=== PATIENT | male | born 1980 | race Caucasian/White ===

== ENCOUNTER 2017-03-20 23:26 | Emergency (ER) | payer MEDICAID, OTHER ==
[2017-03-20 23:53] VITALS: BP 127/80; PULSE 72; RESP 20; TEMP 98.1; O2SAT 98
--- NOTE | 2017-03-21 00:04 | C.PDOC ---
History Of Present Illness 37 year old male who presents to the ER with a complaint of diffuse dental pain. Patient is scheduled for a dental procedure tomorrow but is requesting strong narcotic medications for the pain; he reports he took tylenol with no relief. Denies fever, bleeding gums, or discharge. Time Seen by Provider: 03/21/17 00:01 Chief Complaint (Nursing): Dental Pain History Per: Patient History/Exam Limitations: no limitations Onset/Duration Of Symptoms: Days Current Symptoms Are (Timing): Still Present Quality: Positive for: Aching Recent travel outside of the [place]: No Past Medical History Reviewed: Historical Data, Nursing Documentation, Vital Signs Vital Signs: Last Vital Signs Temp 98.1 F 03/20/17 23:44 Pulse 72 03/20/17 23:44 Resp 20 03/20/17 23:44 BP 127/80 03/20/17 23:44 Pulse Ox 98 03/21/17 00:04 - Medical History PMH: Anemia, Anxiety, Asthma, Depression, Fractures, Obstructive Bowel, Post Traumatic Stress Disorder, Seizures, Chronic Pain Surgical History: No Surg Hx - [facility] Procedures INDIVID PSYCHOTHERAP NEC (01/03/14) INJECT/INFUSE ELECTROLYT (10/19/12) INJECT/INFUSE NEC (04/14/13) NEBULIZER THERAPY (10/25/12) OTHER GROUP THERAPY (01/03/14) Family History: States: Unknown Family Hx - Social History Hx Tobacco Use: Yes Hx Alcohol Use: No Hx Substance Use: No - Immunization History Hx Tetanus Toxoid Vaccination: Yes Hx Influenza Vaccination: Yes Hx Pneumococcal Vaccination: Yes Review Of Systems ENT: Positive for: Mouth Pain. Negative for: Mouth Swelling, Throat Pain, Throat Swelling Physical Exam - Physical Exam Appears: Non-toxic, No Acute Distress Skin: Normal Color, Warm, Dry Head: Atraumatic, Normacephalic, No Swelling (Facial) Oral Mucosa: Moist Tongue: Normal Appearing Lips: Normal Appearing Teeth: Other (Multiple missing teeth and caries) Gingiva: Normal Appearing, No Erythema, No Swelling, No Tender, No Bleeding Throat: Normal, No Erythema, No Exudate ED Course And Treatment O2 Sat by Pulse Oximetry: 98 (Room air) Pulse Ox Interpretation: Normal Progress Note: Prior records reviewed; patient was recently discharged from [facility] with the same complaints and was refused narcotics. Patient denies being at [facility] at all; he is being very verbally abusive and threatening the staff if he does not recieve narcotic. Patient requests to speak to an attending , Dr. Salinas examined patient at bedside, he agrees that patient does not require narcotics. Patient was offered dental block, viscous lidocaine, and tylenol but refuses all. Will discharge home with instructions to follow up with dentist as scheduled. Disposition Counseled Patient/Family Regarding: Diagnosis, Need For Followup - Disposition Referrals: [facility] [Other] Disposition: HOME/ ROUTINE Disposition Time: 00:02 Condition: STABLE Additional Instructions: Please follow up with Dental clinic at [facility] Continue TYlenol and viscous lidocaine Instructions: Toothache (ED) Forms: [employer] (Botswanan) - Clinical Impression Clinical Impression: Toothache - Scribe Statement The provider has reviewed the documentation as recorded by the Scribe Joshua Hernandez All medical record entries made by the Scribe were at my direction and personally dictated by me. I have reviewed the chart and agree that the record accurately reflects my personal performance of the history, physical exam, medical decision making, and the department course for this patient. I have also personally directed, reviewed, and agree with the discharge instructions and disposition.
== END 2017-03-21 00:19 | disposition home or self-care (01) ==
LOC: C.ER 23:26
DX: K08.89 Other specified disorders of teeth and supporting structures (principal)